=== PATIENT | female | born 1975 | race Caucasian/White ===

== ENCOUNTER 2017-08-19 00:31 | Emergency (ER) | payer OTHER ==
[~2017-08-19] VITALS: Ht 167.6 cm; Wt 63.5 kg
[2017-08-19 00:32] VITALS: BP 129/80; PULSE 68; RESP 16; TEMP 97.9; O2SAT 100
[2017-08-19] MEDS ORDERED: FLUO-1 PO (01:52)
[2017-08-19] MEDS ORDERED: AMPH1TAB29 PO (01:52)
[2017-08-19] MEDS ORDERED: PRIL20TA2 PO (01:52)
[2017-08-19] MEDS ORDERED: RANI150C PO (01:54)
--- NOTE | 2017-08-19 02:32 | PD ---
HPI Chief Complaint: Medical Clearance Time Seen by Provider: 01:50 Travel History International Travel<30 days: No Contact w/Intl Traveler<30days: No Traveled to known affect area: No History of Present Illness HPI The patient is a 41-year-old female who presents to the emergency department from [facility] emergency department for an ultrasound of the right upper extremity to rule out DVT. The patient states she noticed swelling of her right upper extremity earlier today and it discolor his a chin with a right upper extremity. Obese slightly purple. The patient was elevating her arm and stated that the color improved, however, she still has mild edema to the right arm. The patient denies any trauma to the right upper extremity. The patient denies any history of previous pulmonary was on, DVT, or coagulopathy disorders. The patient denies any recent surgeries, hospitalizations, or travels. The patient is not currently on control. The patient , states she had one miscarriage, but no known history of coagulopathy disorders. The patient does state the swelling and discoloration has improved. She is right-hand dominant. She denies any chest pain or shortness of breath. PFSH Past Medical History Depression: Yes Diminished Hearing: No GERD: Yes Medical other: Yes (NARCOLEPSY) Migraines: Yes ?: Not Past Surgical History Abdominal Surgery: Yes (HEMMEROIDECTOMY, DIASTASIS RECTI REPAIR, HERNIA REPAIR) Social History Alcohol Use: No Tobacco Use: No Substance Use: No Allergies-Medications (Allergen,Severity, Reaction): Coded Allergies: amoxicillin (Verified Allergy, Unknown, 08/19/17) bacitracin (Verified Allergy, Unknown, 08/19/17) neomycin (Verified Allergy, Unknown, 08/19/17) polymyxin B (Verified Allergy, Unknown, 08/19/17) Uncoded Allergies: ULTASOUND GEL (Allergy, Unknown, 08/18/17) Reported Meds & Prescriptions Reported Meds & Active Scripts Active Reported Ranitidine (Ranitidine HCl) 150 Mg Cap Unknown Dose PO Adderall (Amphetamine-Dextroamphetamine) 5 Mg Tab Unknown Dose PO DAILY Avoid late evening doses. Space doses at least 4 to 6 hours if more than once/day dosing. Prozac (Fluoxetine HCl) 10 Mg Cap Unknown Dose PO DAILY Prilosec (Omeprazole Magnesium) 20 Mg Tab Unknown Dose PO DAILY Review of Systems Except as stated in HPI: all other systems reviewed are Neg Cardiovascular: No: Chest Pain or Discomfort Respiratory: No: Shortness of Breath Gastrointestinal: No: Nausea, Vomiting Musculoskeletal: Positive: Edema, Pain Neurologic: Positive: Paresthesia, No: Sensory Disturbance Physical Exam Narrative GENERAL: Awake, alert, nontoxic-appearing 41-year-old female who appears her stated age and is in no acute respiratory distress. SKIN: Focused skin assessment warm/dry. HEAD: Atraumatic. Normocephalic. NECK: Trachea midline. No JVD. No obvious distention of the neck. CARDIOVASCULAR: Regular rate and rhythm. No murmur appreciated. RESPIRATORY: No accessory muscle use. Clear to auscultation. Breath sounds equal bilaterally. MUSCULOSKELETAL: The right upper extremity does appear slightly edematous compared to the left upper extremity. Positive right radial pulse. Positive right brachial pulse. She is able fully flex and extend the right elbow as well as the right wrist. Intrinsic and muscles are intact. No obvious discoloration. NEUROLOGICAL: Awake and alert. No obvious cranial nerve deficits. Motor grossly within normal limits. Normal speech. Sensation is intact with radial, median, and ulnar distribution of the right upper extremity. PSYCHIATRIC: Appropriate mood and affect; insight and judgment normal. Data Data Last Documented VS Vital Signs Date Time Temp Pulse Resp B/P (MAP) Pulse Ox O2 Delivery O2 Flow Rate FiO2 08/19/17 00:32 97.9 68 16 129/80 (96) 100 Room Air Orders Orders Us Arm Venous Doppler (08/19/17 ) Complete Blood Count With Diff (08/19/17 02:52) Act Partial Throm Time (Ptt) (08/19/17 02:52) Prothrombin Time / Inr (Pt) (08/19/17 02:52) Basic Metabolic Panel (Bmp) (08/19/17 02:52) Rivaroxaban (Xarelto) (08/19/17 03:15) Labs Laboratory Tests Test 08/19/17 03:00 White Blood Count 8.1 TH/MM3 Red Blood Count 3.87 MIL/MM3 Hemoglobin 12.8 GM/DL Hematocrit 36.3 % Mean Corpuscular Volume 93.7 FL Mean Corpuscular Hemoglobin 33.0 PG Mean Corpuscular Hemoglobin Concent 35.2 % Red Cell Distribution Width 12.3 % Platelet Count 202 TH/MM3 Mean Platelet Volume 7.9 FL Neutrophils (%) (Auto) 56.0 % Lymphocytes (%) (Auto) 35.2 % Monocytes (%) (Auto) 6.9 % Eosinophils (%) (Auto) 1.3 % Basophils (%) (Auto) 0.6 % Neutrophils # (Auto) 4.5 TH/MM3 Lymphocytes # (Auto) 2.8 TH/MM3 Monocytes # (Auto) 0.6 TH/MM3 Eosinophils # (Auto) 0.1 TH/MM3 Basophils # (Auto) 0.0 TH/MM3 CBC Comment DIFF FINAL Differential Comment Prothrombin Time 11.2 SEC Prothromb Time International Ratio 1.0 RATIO Activated Partial Thromboplast Time 33.3 SEC Blood Urea Nitrogen 19 MG/DL Creatinine 0.88 MG/DL Random Glucose 93 MG/DL Calcium Level 8.6 MG/DL Sodium Level 138 MEQ/L Potassium Level 3.8 MEQ/L Chloride Level 103 MEQ/L Carbon Dioxide Level 27.9 MEQ/L Anion Gap 7 MEQ/L Estimat Glomerular Filtration Rate 72 ML/MIN [facility] Medical Decision Making Medical Screen Exam Complete: Yes Emergency Medical Condition: Yes Medical Record Reviewed: Yes Interpretation(s) Ultrasound of the arm reveals right axillary and brachial DVT. Laboratory Tests Test 08/19/17 03:00 White Blood Count 8.1 TH/MM3 Red Blood Count 3.87 MIL/MM3 Hemoglobin 12.8 GM/DL Hematocrit 36.3 % Mean Corpuscular Volume 93.7 FL Mean Corpuscular Hemoglobin 33.0 PG Mean Corpuscular Hemoglobin Concent 35.2 % Red Cell Distribution Width 12.3 % Platelet Count 202 TH/MM3 Mean Platelet Volume 7.9 FL Neutrophils (%) (Auto) 56.0 % Lymphocytes (%) (Auto) 35.2 % Monocytes (%) (Auto) 6.9 % Eosinophils (%) (Auto) 1.3 % Basophils (%) (Auto) 0.6 % Neutrophils # (Auto) 4.5 TH/MM3 Lymphocytes # (Auto) 2.8 TH/MM3 Monocytes # (Auto) 0.6 TH/MM3 Eosinophils # (Auto) 0.1 TH/MM3 Basophils # (Auto) 0.0 TH/MM3 CBC Comment DIFF FINAL Differential Comment Prothrombin Time 11.2 SEC Prothromb Time International Ratio 1.0 RATIO Activated Partial Thromboplast Time 33.3 SEC Blood Urea Nitrogen 19 MG/DL Creatinine 0.88 MG/DL Random Glucose 93 MG/DL Calcium Level 8.6 MG/DL Sodium Level 138 MEQ/L Potassium Level 3.8 MEQ/L Chloride Level 103 MEQ/L Carbon Dioxide Level 27.9 MEQ/L Anion Gap 7 MEQ/L Estimat Glomerular Filtration Rate 72 ML/MIN Differential Diagnosis Differential diagnosis includes DVT, Raynaud's phenomenon, superior vena cava syndrome, lymphoma, lymphedema, soft tissue swelling NOS, autoimmune disorder. Narrative Course Ultrasound of the right upper extremity was ordered. Ultrasound is positive for DVT. Therefore, the patient was administer Xarelto 15 mg orally in the emergency department. CBC, BMP, and coags were sent to lab to determine definitive treatment dosing. Diagnosis Primary Impression: DVT of axillary vein, acute right Patient Instructions: General Instructions Additional Instructions: Medications as directed. Please provide the patient a copy of her ultrasound results and lab results at discharge. Follow-up with your primary physician. Compresses to the right upper extremity as needed. Tylenol as needed for pain. Med/Other Pt SpecificInfo: Prescription(s) given Scripts Rivaroxaban (Xarelto) 20 Mg Tab 20 MG PO DAILY for Blood Clot Prevention for 90 Days, #90 TAB 0 Refills Prov: Julito Monroy MD 08/19/17 Rivaroxaban (Xarelto) 15 Mg Tab 15 MG PO Q12HR for Blood Clot Prevention for 21 Days, TAB 0 Refills Prov: Julito Monroy MD 08/19/17 Disposition: 01 DISCHARGE HOME Condition: Stable Julito Monroy MD Aug 19, 2017 02:32
--- NOTE | 2017-08-19 02:41 | RADRPT ---
EXAM DATE/TIME: 08/19/2017 02:08 [place] COMPARISON: No previous studies available for comparison. INDICATIONS : Right arm swelling. MEDICAL HISTORY : Gastroesophageal reflux disease. Depression. Right arm swelling. SURGICAL HISTORY : Hemmeroidectomy. Diastasis repair. Hernia repair. ENCOUNTER: Initial ACUITY: 1 day PAIN SCORE: 0/10 LOCATION: Right arm. FINDINGS: There appears to be incompletely occlusive thrombus present in the right axillary and proximal brachi al veins. CONCLUSION: Right axillary and brachial DVT Elliott Meléndez MD on August 19, 2017 at 2:36 Board Certified Radiologist. This report was verified electronically.
[2017-08-19 03:14] LABS: AUTOMATED NEUTROPHIL # 4.5 TH/MM3 (1.8-7.7); BASOPHIL % 0.6 % (0.0-2.0); EOSINOPHIL # 0.1 TH/MM3 (0-0.4); EOSINOPHIL % 1.3 % (0.0-4.0); HEMATOCRIT 36.3 % (35.0-46.0); HEMO FLAGS DIFF FINAL; LYMPH % 35.2 % (9.0-44.0); LYMPHOCYTE # 2.8 TH/MM3 (1.0-4.8); MEAN CELL VOLUME 93.7 FL (80.0-100.0); MEAN CORPUSCULAR HGB CONC 35.2 % (32.0-36.0); MONO % 6.9 % (0.0-8.0); PLATELET COUNT 202 TH/MM3 (150-450); RED BLOOD COUNT 3.87 MIL/MM3 (4.00-5.30); RED CELL DISTRIBUTION WIDTH 12.3 % (11.6-17.2); WHITE BLOOD COUNT 8.1 TH/MM3 (4.0-11.0)
[2017-08-19] MEDS ORDERED: RIVAROXABAN 15 MG TAB PO ONE (03:15)
[2017-08-19 03:19] LABS: APTT (PATIENT) 33.3 SEC (24.3-30.1); PROTHROMBIN TIME - PATIENT 11.2 SEC (9.8-11.6)
[2017-08-19 03:34] LABS: BICARBONATE 27.9 MEQ/L (21.0-32.0); POTASSIUM 3.8 MEQ/L (3.5-5.1)
[2017-08-19] MEDS ORDERED: XARE20TA PO (03:41)
[2017-08-19] MEDS ORDERED: XARE15TA PO (03:41)
== END 2017-08-19 04:10 | disposition home or self-care (01) ==
LOC: NEPE 00:31
DX: I82.621 Acute embolism and thrombosis of deep veins of right upper extremity (principal); Z86.59 Personal history of other mental and behavioral disorders; Z87.19 Personal history of other diseases of the digestive system; Z86.69 Personal history of other diseases of the nervous system and sense organs
CPT/HCPCS: 80048; 85025; 85610; 85730; 93971; 99282; 99284